=== PATIENT | female | born 1935 | race Caucasian/White ===

== ENCOUNTER 2016-12-22 08:53 | Emergency (ER) | payer OTHER, BC ==
[2016-12-22 09:00] VITALS: BP 155/94
== END 2016-12-22 10:21 | disposition home or self-care (01) ==
LOC: ED 08:53
DX: S83.92XA Sprain of unspecified site of left knee, initial encounter (principal); I10 Essential (primary) hypertension; X50.1XXA Overexertion from prolonged static or awkward postures, initial encounter; Y93.01 Activity, walking, marching and hiking; Y92.89 Other specified places as the place of occurrence of the external cause; Y99.8 Other external cause status